=== PATIENT | female | born 1990 | race Caucasian/White ===

== ENCOUNTER 2024-08-11 21:40 | Emergency (ER) | payer SELFPAY ==
[2024-08-11 21:44] VITALS: BP 143/91
[2024-08-11 22:05] LABS: % Basophils 0.4 % (0-2); % Immature Granulocytes 0.3 % (0-0.5); % Lymphocytes 12.2 % (20.5-51.1); % Neutrophils 84.1 % (42.2-75.2); Absolute Basophils 0.1 10^3/uL (0-0.2); Absolute Lymphocytes 1.8 10^3/uL (1.2-3.4); Absolute Monocytes 0.4 10^3/uL (0.1-0.6); Absolute Neutrophils 12.5 10^3/uL (1.4-6.5); Hemoglobin 14.8 g/dL (12.0-16.0); Mean Corp Hgb Conc. 34.4 g/dL (33.0-37.0); Mean Corpuscular Hgb 30.6 pg (27.0-31.0); Mean Corpuscular Volume 88.8 fL (81.0-99.0); Mean Platelet Volume 8.9 fL (7.4-10.4); Nucleated Red Blood Cells % 0 %; Platelet Count 371 10^3/uL (130-400); Red Blood Cell Count 4.84 10^6/uL (4.20-5.40); Red Cell Dist. Width 12.1 % (11.5-14.5); White Blood Cell Count 14.8 10^3/uL (4.8-10.8)
[2024-08-11 22:20] LABS: ALT (SGPT) 16 U/L (0-35); AST (SGOT) 21 U/L (14-36); Alkaline Phosphatase 67 U/L (38-126); Blood Urea Nitrogen 9 mg/dl (7-17); Calcium 10.3 mg/dl (8.4-10.2); Carbon Dioxide 26 mmol/L (22-30); Chloride 104 mmol/L (98-107); Glucose 95 mg/dl (70-99); Potassium 3.5 mmol/L (3.5-5.1); Sodium 143 mmol/L (135-145); Total Protein 8.5 g/dl (6.3-8.2); eGFR > 60.00
[2024-08-11 22:47] VITALS: BMI 25.9
[2024-08-11 23:00] VITALS: BP 138/78
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
[2024-08-11 23:45] LABS: Alcohol None Detected
[2024-08-12 01:01] LABS: HCG, Serum Qualitative Screen Negative
[2024-08-12 02:01] VITALS: BP 129/70
[2024-08-12] MEDS: ZOFRAN ODT (ORALLY DISINTEGRATING) 4 MG PO (03:05)
[2024-08-12] MEDS: ADACEL 0.5 ML IM (03:06)
[2024-08-12] MEDS: PLAN B ONE-STEP, NEXT CHOICE 1 TABLET PO (03:09)
[2024-08-12] MEDS: FLAGYL 500 MG PO (03:09)
[2024-08-12] MEDS: VIBRAMYCIN 100 MG PO (03:18)
[2024-08-12] MEDS: ROCEPHIN 1.4286 MG IM (03:28)
== END 2024-08-12 03:36 | disposition home or self-care (01) ==
LOC: EMR 21:40
PROVIDERS: Emergency Medicine; EMERGENCY PHYSICIAN Emergency Medicine
DX: T76.21XA Adult sexual abuse, suspected, initial encounter (principal); T50.905A Adverse effect of unspecified drugs, medicaments and biological substances, initial encounter; Y92.9 Unspecified place or not applicable; Z23 Encounter for immunization; E86.0 Dehydration; Z82.49 Family history of ischemic heart disease and other diseases of the circulatory system
CPT/HCPCS: 99283; 96374; 90471; 80053; 82077; 84703; 85025; 90715